=== PATIENT | male | born 1940 | race Caucasian/White ===

== ENCOUNTER 2019-06-21 02:29 | Emergency (ER) | payer MEDICARE ==
[~2019-06-21] VITALS: Ht 167.6 cm; Wt 65.4 kg
[2019-06-21] MEDS ORDERED: SINEMET 25/1001 TA2 PO (02:56)
[2019-06-21] MEDS ORDERED: JARDIANCE25 MG PO (02:56)
[2019-06-21] MEDS ORDERED: REPATHA SUR140 MG/ML SC (02:57)
[2019-06-21] MEDS ORDERED: XARELTO20 MG PO (02:59)
[2019-06-21] MEDS ORDERED: ALLOPURINOL300 MG PO (02:59)
[2019-06-21] MEDS ORDERED: RAPAFLO8 MG PO (03:01)
[2019-06-21] MEDS ORDERED: MYRBETRIQ25 MG PO (03:02)
[2019-06-21] MEDS ORDERED: ESCITALOPRAM OXA5 MG PO (03:03)
[2019-06-21] MEDS ORDERED: LISINOPRIL2.5 MG PO (03:03)
[2019-06-21] MEDS ORDERED: BACLOFEN10 MG PO (03:04)
[2019-06-21 03:16] LABS: HEMATOCRIT 39.2 % (39.0-50.0); HEMOGLOBIN 12.6 g/dl (14.0-18.0); IMMATURE GRANULOCYTES 0.2 % (0.0-5.0); MEAN CELL VOLUME 91.8 fL CALC (80.0-100.0); MEAN CORPUSCULAR HGB 29.5 pG CALC (26.0-32.0); MEAN CORPUSCULAR HGB CONC 32.1 g/L CALC (32.0-36.0); NEUT# 3.47 thou/uL (1.82-7.42); RED BLOOD COUNT 4.27 mill/uL (4.70-6.10)
[2019-06-21 03:31] LABS: INTERNATIONAL NORMALIZED RATIO 1.1 RATIO (0.7-1.3); PROTHROMBIN TIME 11.4 SECONDS (9.0-12.5)
[2019-06-21 03:38] LABS: ALBUMIN 3.9 g/dL (3.2-5.0); ALKALINE PHOSPHATASE 60 u/l (38-126); ANION GAP 15 (6-22 (CALC)); BILIRUBIN, TOTAL 0.7 mg/dL (0.0-1.4); BUN 18 mg/dL (8-23); BUN/CREATININE RATIO 20 (12-20 (CALC)); CARBON DIOXIDE 24 mmol/l (22-30); CHLORIDE 105 mmol/l (95-108); CREATININE 0.9 mg/dL (0.7-1.3); GFR > 60 ML/MIN (>=60 (CALC)); GFR FOR AFR.AMER. > 60 ML/MIN (>=60 (CALC)); POTASSIUM 3.9 mmol/l (3.5-5.1); SGOT/AST 19 u/l (19-48); SODIUM 141 mmol/l (137-146); TOTAL PROTEIN 6.7 g/dL (6.3-8.2)
[2019-06-21 03:48] LABS: MYOGLOBIN 92 ng/mL (0 - 121)
[2019-06-21] MEDS ORDERED: KEPPRA500 M2 PO (04:17)
[2019-06-21 04:30] VITALS: BP 152/70
== END 2019-06-21 04:40 | disposition home or self-care (01) ==
LOC: ED 02:29
PROVIDERS: Emergency Medicine
DX: G40.409 Other generalized epilepsy and epileptic syndromes, not intractable, without status epilepticus (principal); I25.10 Atherosclerotic heart disease of native coronary artery without angina pectoris; E11.9 Type 2 diabetes mellitus without complications; G20 Parkinson's disease; Z86.73 Personal history of transient ischemic attack (TIA), and cerebral infarction without residual deficits
CPT/HCPCS: J1953

== ENCOUNTER 2024-01-24 12:15 | Emergency (ER) | payer MEDICARE ==
[~2024-01-24 12:15] MED LIST: ALLOPURINOL300 MG PO; BACLOFEN10 MG PO; ESCITALOPRAM OXA5 MG PO; JARDIANCE25 MG PO; KEPPRA500 M2 PO; LISINOPRIL2.5 MG PO; MYRBETRIQ25 MG PO; RAPAFLO8 MG PO; REPATHA SUR140 MG/ML SC; SINEMET 25/1001 TA2 PO; XARELTO20 MG PO
== END 2024-01-24 13:23 | disposition left against medical advice (07) ==
LOC: ED 12:15 → LWOBS 13:22 → ED 13:22 → LWOBS 13:23
DX: Z53.21 Procedure and treatment not carried out due to patient leaving prior to being seen by health care provider (principal)